=== PATIENT | female | born 1980 | race Caucasian/White ===

== ENCOUNTER → 2020-07-06 | Day surgery (SDC) | payer BC ==
--- OUTSIDE RECORDS SUMMARY | 2020-07-06 09:25 | XMS REPORT | Continuity of Care Document ---
:[address] [facility] t Address [address] [place] [address] Care Team Providers Name Role Phone Unavailable Unavailable Unavailable Problems Condition Condition Condition Status Onset Resolution Last Treating Co mments Source Name Details Category Date Date Treatment Clinician Date Depression Depression Diagnosis [facility] Asthma, Asthma, Diagnosis [facility] un[facility] unspecifie Sangita kes - d asthma d asthma Memori a severity, severity, l unspecifie unspecifie Ou tpati d whether d whether ent complicate complicate Cl inics d, d, unspecifie unspecifie d whether d whether persistent persistent Moderate Moderate Problem [facility] persistent persistent Sangita kes - asthma asthma Memoria without without l complicati complicati Ou tpati on on ent Clinics IUD IUD Problem Active [facility] surveillan surveillan Sangita kes - ce ce [facility] Encounter Encounter Problem Active [facility] - screening screening Remberto piotr mammogram mammogram l for breast for breast Ou tpati cancer cancer ent Clinics Well woman Well woman Problem Active [facility] exam with exam with [facility] - routine routine Memoria gynecologi gynecologi l damian exam damian exam Outpat i ent Clinics Sleep Sleep Problem Active [facility] disturbanc disturbanc Sangita kes - e e [facility] Intractabl Intractabl Problem Active [facility] e migraine e migraine Sangita kes - without without Memoria status status l migrainosu migrainosu Ou tpati s, s, ent unspecifie unspecifie Cl inics d migraine d migraine type type Pure Pure Problem Active [facility] hyperchole hyperchole Sangita kes - sterolemia sterolemia Me moria l Outpati ent Clinics Migraine Migraine Problem [facility] without [facility] - aura and aura and Memori a without without l status status Outpati migrainosu migrainosu en t s, not s, not Clinics intractabl intractabl e e Seasonal Seasonal Problem [facility] allergies allergies [facility] Mass in Mass in Diagnosis [facility] Encounter Encounter Diagnosis Active [facility] for for [facility] - immunizati immunizati Me moria on on l [facility] Allergies, Adverse Reactions, Alerts This patient has no known allergies or adverse reactions. Medications Ordered Filled Start Stop Current Ordering Indication Dosage Frequency Signature Comments Components Source Medication Medication Date Date Medication? Clinician (SIG) Name Name Jacobo Centeno 2018-09- No Shala [address] [facility] Ellipta Ellipta 2-03 03-02 [place] [facility] - 00:00: 00:00 [facility]oria 00 :00 [facility] Trazodone Trazodone 2018-09 Yes Shala [address] [facility] HCl HCl 1-05 [place] at bedtime [facility] - 00:[facility]: Memoria 00 [facility] MagOx 400 MagOx 400 2018-09- No Shala [address] [facility] 1-05 03-04 [place] with food [facility] - 00:[facility]: 00:00 [facility] 00 :00 [facility] Albuterol Albuterol Yes Shala [address] [facility] Sulfate HFA Sulfate HFA [place] needed [facility] Escitalopra Escitalopra Yes Shala [address] [facility] m Oxalate m Oxalate [place] [facility] BusPIRone BusPIRone Yes Shala [address] [facility] HCl HCl [place] [facility] Immunizations Ordered Filled Immunization Date Status Comments Sourc e Immunization Name Name Flucelvax - single Flucelvax - single 2019-08-[address] [facility] - dose syringe dose syringe 00:00:00 [facility] Procedures This patient has no known procedures. Encounters Start End Encounter Admission Attending Care Care Encounter Source Date/Time Date/Time Type Type Clinicians Facility Department ID 2019-08-18 2019-08-18 [facility] [id number] [facility] 11:40[facility]00 11:40:00 t [facility] 2019-07-21 2019-07-21 [facility] [id number] [facility] 11[facility]00:00 11:00:00 t [facility] 2018-09-26 2018-09-26 [facility] [id number] [facility] 15:24:00 15:24:00 t [facility] 2018-09-19 2018-09-19 [facility] [id number] [facility] 09:30:00 09:30:00 t [facility] Clin[facility] Results This patient has no known results.
--- NOTE | 2020-07-06 10:34 | RAD REPORT ---
EXAM DESCRIPTION: US - Breast Core BX w/US Guidance - 07/06/2020 10:20 am CLINICAL HISTORY: R92.8, upper inner quadrant 2 centimeter left breast mass COMPARISON: Mammography and sonography June 15, 2020 TECHNIQUE: The patient presents for ultrasound-guided biopsy of a previously detailed 2 centimeter u pper inner quadrant left breast mass. The ultrasound-guided core biopsy procedure, risks and alternatives were discussed with the patient i n detail. After answering all questions, both oral and written consent were obtained. Time out proced ure was performed. The patient had no contraindicated allergy or medication history. Preliminary imaging identified the upper inner quadrant left breast mass. The left breast was prepped and draped in the usual sterile fashion. From an inferior approach, skin and deeper tissues were ane sthetized with 1% lidocaine. Under direct sonographic visualization a 14 gauge vacuum assisted core b iopsy needle was advanced and placed at the margin of the mass. There were a total of 2 core biopsies obtained under direct sonographic guidance. The mass did appear to have distortion in contour suppor ting transit of of each biopsy through the small mass. At the conclusion of the procedure a localization clip was placed under sonographic guidance. Post biopsy imaging showed no hematoma or measurable bleeding within the breast. Hemostasis was obtai lovely at the skin site with a sterile bandage placed. Post procedure care and precaution instructions were given to the patient. IMPRESSION: 1. Ultrasound-guided core biopsy was performed of the upper inner quadrant left breast 2 centimeter mass. All obtained material was given to pathology for histologic assessment. 2. Post biopsy localization clip was placed under ultrasound guidance.
== END ==
LOC: DS 09:21
PROVIDERS: ATTEND Obstetrics & Gynecology
PROC: 0HBU3ZX Excision of Left Breast, Percutaneous Approach, Diagnostic (ICD-10-PCS; principal; 2020-07-06)
DX: N63.20 Unspecified lump in the left breast, unspecified quadrant (principal)
CPT/HCPCS: 19083; 88305